=== PATIENT | male | born 1955 | race Caucasian/White ===

== ENCOUNTER 2022-05-14 11:56 | Emergency (ER) | payer BC ==
[~2022-05-14] VITALS: Ht 190.5 cm; Wt 102.3 kg
[2022-05-14 12:13] VITALS: TEMP 98.4
[2022-05-14 13:57] LABS: ALBUMIN 1.3 gm/dL (3.4-4.8); BILIRUBIN,TOTAL 0.6 mg/dL (0.2-1.2); C-REACTIVE PROTEIN 5.69 mg/dL (0.00-0.50); CALCIUM 8.5 mg/dL (8.4-10.2); CREATININE, serum 4.21 mg/dL (0.72-1.25); POTASSIUM 3.6 mmol/L (3.5-4.5); TOTAL PROTEIN 5.4 gm/dL (6.2-8.1)
[2022-05-14 13:59] LABS: BASO % 0.6 % (0.0-2.0); EOS % 0.2 % (0.0-4.0); GRAN # 3.8 K/mm3 (1.4-6.5); GRAN % 75.8 % (42.2-75.2); HEMATOCRIT 22.7 % (42.0-52.0); HEMOGLOBIN 7.5 g/dl (13.5-18.0); LYMPH # 0.6 K/mm3 (1.2-3.4); LYMPH % 12.8 % (20.0-51.0); MEAN CELL VOLUME 106 fl (80.0-100.0); MEAN CORPUSCULAR HEMOGLOBIN 35 pg (27-31); MEAN CORPUSCULAR HGB CONC 33 g/dl (33.0-37.0); MEAN PLATELET VOLUME 9.9 fl (7.4-10.4); MONO # 0.5 K/mm3 (0.1-0.6); MONO % 9.8 % (1.7-9.3); PLATELET COUNT 326 K/mm3 (130-400); RED BLOOD COUNT 2.14 M/mm3 (4.20-5.60); REDCELL DISTRIBUTION WIDTH-CV 22.8 % (11.5-14.5)
[2022-05-14 14:37] LABS: ERYTHROCYTE SEDIMENTATION RATE > 140 mm/hr (0-30)
[2022-05-14 15:00] VITALS: BP 161/104; PULSE 108
== END 2022-05-14 15:25 | disposition home or self-care (01) ==
LOC: COL.ER 11:56
PROVIDERS: Personal Emergency Response Attendant
DX: L03.115 Cellulitis of right lower limb (principal); D64.9 Anemia, unspecified; R70.0 Elevated erythrocyte sedimentation rate

== ENCOUNTER 2023-12-16 11:22 | Day surgery (SDC) | payer BC ==
[~2023-12-16] VITALS: Ht 190.5 cm; Wt 92.1 kg
[~2023-12-16 11:22] MED LIST: LR 1,000 ML IV SCH; Ondansetron 4 MG/2 ML VIAL IV PRN
[2023-12-16 11:39] VITALS: BP 131/85; PULSE 108; TEMP 97.9
--- NOTE | 2023-12-16 12:13 | NUR ---
The patient was brought back to [facility] via wheelchair and transferred himself from the wheelchair to the recliner in the room with the stand by assistance of the nurse. 20G IV started in right hand with one stick, LR infusing without. Assessment completed. Home medications reconcilled. , Nany at bedside. Warm blankets provided. Denies any further needs at this time.
[2023-12-16] MEDS ORDERED: MAG-OX 400400 MG/TAB PO (12:19)
[2023-12-16] MEDS ORDERED: PREDNISONE 5MG5 MG PO (12:20)
[2023-12-16] MEDS ORDERED: KLOR-CON M2020 MEQ PO (12:20)
[2023-12-16] MEDS ORDERED: PROTONIX 40MG T40 MG PO (12:22)
[2023-12-16] MEDS ORDERED: MASON NATURAL2000 IU PO (12:22)
[2023-12-16] MEDS ORDERED: Ondansetron 4 MG/2 ML VIAL ONE (12:49)
[2023-12-16] MEDS ORDERED: Lidocaine PF 2% (20 MG/ML) 5 ML VIAL ONE (12:49)
[2023-12-16] MEDS ORDERED: ePHEDrine 50 MG/ML VIAL ONE (12:50)
[2023-12-16 13:45] VITALS: BP 119/73; PULSE 114; TEMP 97.5
[2023-12-16 14:00] VITALS: BP 142/89; PULSE 116
[2023-12-16 14:15] VITALS: BP 124/88; PULSE 118
[2023-12-16 14:30] VITALS: BP 134/81; PULSE 116
--- NOTE | 2023-12-16 15:00 | NUR ---
1345 RETURNS TO ROOM 7 PER CART. AWAKE, ALERT. RESP UNLABORED. STAND TRANSFERS FROM CART TO RECLINER AT DOORWAY. DENIES NAUSEA, ABD/CHEST PAIN OR DYSPHAGIA. VITAL SIGNS OBTAINED. CALL LIGHT AT SIDE. IN ROOM 1400 TOLERATES PO SODA AND PUDDING WITHOUT NASUEA. SWALLOWS WITHOUT DIFFICULTY 1415 DR SINGH HERE TO VISIT WITH PATIENT 1445 DISCHARGE INSTRUCTIONS REVIEWED. PATIENT AND VERBALIZE UNDERSTANDING. COPY PROVIDED IN DISCHARGE FOLDER 5402 PATIENT DRESSES WITH ASSIST FROM
== END 2023-12-16 15:00 | disposition home or self-care (01) ==
LOC: SDCO 11:22
DX: K57.30 Diverticulosis of large intestine without perforation or abscess without bleeding (principal); D12.2 Benign neoplasm of ascending colon; D12.8 Benign neoplasm of rectum; R63.4 Abnormal weight loss; R63.0 Anorexia; K44.9 Diaphragmatic hernia without obstruction or gangrene; Z94.0 Kidney transplant status; Z90.49 Acquired absence of other specified parts of digestive tract; D84.9 Immunodeficiency, unspecified; R19.4 Change in bowel habit; K29.50 Unspecified chronic gastritis without bleeding
CPT/HCPCS: J2405; J2704; J7120